=== PATIENT | female | born 1990 | race Caucasian/White ===

== ENCOUNTER 2018-11-16 08:38 | Outpatient (CLI) | payer OTHER ==
[2018-11-16 12:05] LABS: HGB - HEMOGLOBIN 13.5 g/dL (12.0-16.0); MEAN CORPUSCULAR HEMOGLOBIN 30.5 pg (27.0-31.0); MEAN CORPUSCULAR HGB CONC 32.1 g/dL (32.0-36.0); MEAN CORPUSCULAR VOLUME 95.2 fL (81.0-99.0); MEAN PLATELET VOLUME 10.3 fL (7.9-10.8); RED BLOOD COUNT 4.42 10^6/uL (4.20-5.40); RED CELL DISTRIBUTION WIDTH 14.1 % (12.0-15.0); WHITE BLOOD COUNT 8.7 x10^3/uL (4.8-10.8)
[2018-11-16 12:37] LABS: T4 (THYROXINE) 9.74 ug/dL (6.09-12.23)
[2018-11-16 12:39] LABS: THYROID STIMULATING HORMONE 0.9 uIU/mL (0.34-5.60)
[2018-11-16 12:46] LABS: TOTAL T3 2.22 ng/mL (0.87-1.78)
== END 2018-11-16 23:59 | disposition home or self-care (01) ==
LOC: LAB.WCP 08:38
PROVIDERS: ATTEND Obstetrics & Gynecology
DX: Z34.90 Encounter for supervision of normal pregnancy, unspecified, unspecified trimester (principal)
CPT/HCPCS: 36415; 82950; 84436; 84443; 84480; 85027; 86850; 86870

== ENCOUNTER 2018-11-22 07:53 | Outpatient (CLI) | payer OTHER | END 2018-11-22 07:54 | disposition home or self-care (01) | LOC: LAB 07:53 | PROVIDERS: ATTEND Obstetrics & Gynecology | DX: O99.810 Abnormal glucose complicating pregnancy (principal) | CPT/HCPCS: 36415; 82951; 82952 ==

== ENCOUNTER 2018-11-24 13:08 | Outpatient (CLI) | payer OTHER ==
[~2018-11-24 13:08] MED LIST: ALBUTEROL NEB 2.5 MG/3 ML INH SCH
== END 2018-11-24 13:09 | disposition home or self-care (01) ==
LOC: RT 13:08
PROVIDERS: ATTEND Obstetrics & Gynecology
DX: J45.998 Other asthma (principal)
CPT/HCPCS: 94060; 94664

== ENCOUNTER 2019-01-08 08:00 | Outpatient (CLI) | payer OTHER ==
[2019-01-08 21:57] LABS: TRICHOMONAS VAGINALIS DNA NEGATIVE (NEGATIVE)
== END 2019-01-08 23:59 | disposition home or self-care (01) ==
LOC: LAB.R 08:00
PROVIDERS: ATTEND Nurse Practitioner Obstetrics & Gynecology
DX: Z36.85 Encounter for antenatal screening for Streptococcus B (principal); Z36.88 Encounter for antenatal screening for fetal macrosomia
CPT/HCPCS: 87491; 87591; 87661; 87797

== ENCOUNTER 2019-01-18 08:21 | Outpatient (CLI) | payer OTHER ==
[2019-01-18 12:53] LABS: T4 (THYROXINE) 8.43 ug/dL (6.09-12.23)
[2019-01-18 12:57] LABS: THYROID STIMULATING HORMONE 0.96 uIU/mL (0.34-5.60)
== END 2019-01-18 23:59 | disposition home or self-care (01) ==
LOC: LAB.N 08:21
PROVIDERS: ATTEND Nurse Practitioner Obstetrics & Gynecology
DX: E03.8 Other specified hypothyroidism (principal)
CPT/HCPCS: 36415; 84436; 84443

== ENCOUNTER 2019-01-29 15:24 | Outpatient (CLI) | payer OTHER ==
--- NOTE | 2019-01-30 13:38 | Ultrasound Report ---
Reason: SUPERVISION OF NORMAL Procedure Date: 01/29/2019 Accession Number: [id number] / [id number] Procedure: US - OB F/U or Repeat CPT Code: FULL RESULT: EXAM: FOLLOW-UP OBSTETRICAL ULTRASOUND EXAM DATE: 01/29/2019 04:57 PM. CLINICAL HISTORY: Supervision of normal . COMPARISON: No comparison images are available. A report from an outside ultrasound evaluation is provided. TECHNIQUE: Real-time sonographic evaluation of the fetus performed by the python architect. Multiple civil rights representative static images were saved for review. DATING: Established EGA 38 weeks 5 days with BERYL 02/07/2019 based on working due date. EGA 40 weeks 1 day with BERYL 01/28/2019 based on the current ultrasound. GENERAL EVALUATION [place] . Cardiac activity: 137 bpm. movement: Visualized. Presentation: Cephalic. Placenta: Anterior position. Amniotic fluid: Normal. HEATHER 19 cm. MVP 6.1 cm. BIOMETRY Bi-Parietal Diameter (BPD): 9.6 cm, 39 weeks 4 days Head Circumference (HC): 35.3 cm, 41 weeks 2 days Abdominal Circumference (AC): 36.8 cm, 40 weeks 5 days Femur Length (FL): 7.6 cm, 39 weeks 0 days Estimated Weight: 4049 grams, 94th percentile for 38 weeks 5 days. IMPRESSION: 1. [place] live intrauterine with gestational age 38 weeks 5 days based on working due date. 2. Estimated weight is consistent with the report of previous ultrasound and remains above the 90th percentile for the working due date. 3. Consistent interval growth compared to report of previous ultrasound exam. RADIA
== END 2019-01-29 15:25 | disposition home or self-care (01) ==
LOC: DI 15:24
PROVIDERS: ATTEND Nurse Practitioner Obstetrics & Gynecology
DX: Z34.93 Encounter for supervision of normal pregnancy, unspecified, third trimester (principal)
CPT/HCPCS: 76816

== ENCOUNTER 2019-01-31 16:45 | Inpatient (IN) | payer OTHER ==
[2019-01-31] MEDS ORDERED: SODIUM CHLORIDE FLUSH 0.9% 10 ML SYRINGE ONE (17:50)
[2019-01-31 18:52] LABS: BASOPHILS % (AUTO) 0.3 %; EOSINOPHILS # (AUTO) 0.1 10^3/uL (0.0-0.7); EOSINOPHILS % (AUTO) 1.3 %; HGB - HEMOGLOBIN 14.4 g/dL (12.0-16.0); LYMPHOCYTES % (AUTO) 18.2 %; MEAN CORPUSCULAR HEMOGLOBIN 31.6 pg (27.0-31.0); MEAN CORPUSCULAR VOLUME 92.8 fL (81.0-99.0); MEAN PLATELET VOLUME 10.9 fL (7.9-10.8); MONOCYTES # (AUTO) 0.8 10^3/uL (0.0-1.0); MONOCYTES % (AUTO) 7.5 %; NEUTROPHILS # (AUTO) 7.8 10^3/uL (1.5-6.6); NEUTROPHILS % (AUTO) 71.4 %; PLT - PLATELET COUNT 179 10^3/uL (130-450); RED BLOOD COUNT 4.56 10^6/uL (4.20-5.40); RED CELL DISTRIBUTION WIDTH 13.6 % (12.0-15.0); WHITE BLOOD COUNT 10.9 x10^3/uL (4.8-10.8)
[2019-01-31] MEDS ORDERED: ONDANSETRON 4 MG/2 ML VIAL IVP PRN (18:59)
[2019-01-31] MEDS ORDERED: ACETAMINOPHEN 325 MG TABLET PO PRN (18:59)
[2019-01-31] MEDS ORDERED: LABETALOL 20 MG/4 ML SYRINGE IVP PRN (18:59)
[2019-01-31] MEDS ORDERED: SODIUM CHLORIDE FLUSH 0.9% 10 ML SYRINGE IVP PRN (18:59)
[2019-01-31] MEDS ORDERED: CARBOPROST TROMETHAMINE 250 MCG/ML AMP IM PRN (18:59)
[2019-01-31] MEDS ORDERED: ONDANSETRON ODT 4 MG TABLET TL PRN (18:59)
[2019-01-31] MEDS ORDERED: fentaNYL 100 MCG/2 ML VIAL IVP PRN (18:59)
[2019-01-31] MEDS ORDERED: TERBUTALINE 1 MG/ML VIAL SUBQ PRN (18:59)
[2019-01-31] MEDS ORDERED: miSOPROStol 200 MCG TABLET PR ONE (18:59)
[2019-01-31] MEDS ORDERED: METOCLOPRAMIDE 10 MG TABLET PO PRN (18:59)
[2019-01-31] MEDS ORDERED: METOCLOPRAMIDE 10 MG/2 ML VIAL IVP PRN (18:59)
[2019-01-31] MEDS ORDERED: OXYTOCIN/DEXTROSE 5 % 30 UNIT/500 ML BAG IV PRN (18:59)
[2019-01-31] MEDS ORDERED: LACTATED RINGERS 1,000 ML IV SCH (19:00)
[2019-01-31] MEDS ORDERED: OXYTOCIN/DEXTROSE 5 % 30 UNIT/500 ML BAG IV SCH (19:00)
[2019-01-31 19:05] LABS: URIC ACID 3.3 mg/dL (2.6-7.2)
[2019-01-31 19:39] LABS: CREATININE,URINE 46.9 mg/dL; PROTEIN/CREATININE RATIO,URINE 0.2 (<=0.2)
[2019-01-31] MEDS ORDERED: miSOPROStol 100 MCG TABLET BC SCH (21:00)
[2019-01-31] MEDS ORDERED: CETIRIZINE 10 MG TABLET PO PRN (22:07)
[2019-02-01] MEDS ORDERED: SODIUM CHLORIDE FLUSH 0.9% 10 ML SYRINGE IVP SCH (01:00)
--- NOTE | 2019-02-01 03:52 | HISTORY & PHYSICAL EXAMINATION ---
Admit History - Visit Reason Visit Reason: Other (Induciton of labor) - : 2 Parity: 1 Care: positive: [facility] Risk/History: positive: Other (Concern for macrosomia. Gestational hypertension.) Smoking Status: Former smoker - Mother's Labs Mother's Blood Type: positive: O Mother's RH: positive: Negative GBS: positive: Group B Step Negative Rubella Status: positive: Immune - Other Maternal History Other Maternal History: Patient is a 28-year-old G2, P1 at 39 and 0 weeks estimated gestational age with an BERYL of 02/07/2019 based on IVF dating. Patient was seen in clinic today and reported persistent headaches. Blood pressure was checked and was in the 140s over 90s. She had 1+ urine protein. is also been complicated by concern for possible macrosomia. She underwent a growth ultrasound at 38 weeks and 5 days. was estimated to weigh 4039g. SVE in clinic was closed long and high. Bedside ultrasound showed infant to be in vertex presentation. Blood type is O+. Rubella immune. GBS negative. Received RhoGam on 11/13/2018. Admitted for induction of labor. Meds/Allgy - Allergies Allergies/Adverse Reactions: Allergies Allergy/AdvReac Type Severity Reaction Status Date / Time enviormental Allergy Respiratory Uncoded 01/31/19 19:51 hay fever Allergy Respiratory Uncoded 01/31/19 19:51 Review of Systems - Other Findings Other Findings: As per HPI otherwise remaining systems are negative. Physical - Abdominal Exam Uterine Resting Tone: positive: Soft - Monitoring Heart Rate Baseline: 135 Moderate variability 15 x 15 accelerations no decelerations Strip Review: positive: Category I - Presentation Presentation: positive: Vertex - Vaginal Exam Membranes: positive: Membranes intact Dilation (in cm): closed Effacement (%): long Station: positive: -3 Cervical Position: positive: Posterior - Speculum Exam Speculum Exam Performed: positive: No Plan for Labor - Plan For Labor Plan for Labor: Patient is a 28-year-old G2, P0 with BERYL of 02/07/2019 admitted for induction of labor for gestational hypertension and suspected macrosomia. IOL: -Unfavorable cervical exam. -Cervical ripening with misoprostol 50 mcg BC every 4 hours for up to 6 doses -Discussed possibility of placement of Boss balloon -Pitocin once cervix is favorable -Written informed consent obtained FWB: -Suspected macrosomia. Estimated weight at 38 weeks 5 days was 4039 g. Does not meet criteria to offer primary for suspected macrosomia as estimated weight is less than 5000 g. Would not offer operative delivery in the setting of systolic labor course. -Category 1 tracing -Vertex presentation -GBS negative PAIN: -Fentanyl 50 mcg IV q. 20 minutes as needed pain for max dose of 200 mcg in total. Not to be given after 7 cm dilation -Nitrous oxide per patient request -Epidural as patient desire GHTN: -Mild range blood pressures at admission -PIH labs within normal limits -Mild headaches without vision change. -Continue to monitor signs and symptoms. IV labetalol for severe range blood pressures. -We will hold magnesium drip unlesssevere criteria for preeclampsia are met. -Continue to monitor at present. Anticipate Inpatient care
[2019-02-01 04:51] VITALS: BP 101/64
[2019-02-01] MEDS ORDERED: LEVOTHYROXINE 75 MCG TABLET PO SCH (07:00)
[2019-02-01] MEDS ORDERED: CETIRIZINE 10 MG TABLET PO SCH (09:00)
--- NOTE | 2019-02-01 09:35 | PROVIDER PROGRESS NOTE ---
Subjective - Prog Note Date Prog Note Date: 02/01/19 Prog Note Time: 09:33 - Subjective Subjective: The patient is doing actually quite well this morning. The pain that was interpreted as a headache is actually facial pain. The patient states she has allergies which causes this pain. She does not have any occipital headaches.She is actually without any complaint today. Objective - Vital Signs/Intake & Output Vital Signs: Vital Signs x48h Temp Pulse Resp BP Pulse Ox 02/01/19 04:30 36.7 C 102 H 18 101/64 98 - Lab Results Fish Bones: 01/31/19 18:46 Other Labs: Lab Results x24hrs 01/31/19 01/31/19 01/31/19 Range/Units 19:15 18:46 18:46 WBC 10.9 H (4.8-10.8) x10^3/uL RBC 4.56 (4.20-5.40) 10^6/uL Hgb 14.4 (12.0-16.0) g/dL Hct 42.3 (37.0-47.0) % MCV 92.8 (81.0-99.0) fL MCH 31.6 H (27.0-31.0) pg MCHC 34.0 (32.0-36.0) g/dL RDW 13.6 (12.0-15.0) % Plt Count 179 (130-450) 10^3/uL MPV 10.9 H (7.9-10.8) fL Neut # (Auto) 7.8 H (1.5-6.6) 10^3/uL Lymph # (Auto) 2.0 (1.5-3.5) 10^3/uL Pitkin # (Auto) 0.8 (0.0-1.0) 10^3/uL Eos # (Auto) 0.1 (0.0-0.7) 10^3/uL Baso # (Auto) 0.0 (0.0-0.1) 10^3/uL Absolute Nucleated RBC 0.00 x10^3/uL Nucleated RBC % 0.0 /100WBC Uric Acid 3.3 (2.6-7.2) mg/dL AST 17 (10-42) IU/L Lactate Dehydrogenase (91-225) IU/L Urine Creatinine 46.9 mg/dL Ur Total Protein Timed 10 mg/dL Protein/Creatinin Ratio 0.2 (<=0.2) 01/31/19 Range/Units 18:46 WBC (4.8-10.8) x10^3/uL RBC (4.20-5.40) 10^6/uL Hgb (12.0-16.0) g/dL Hct (37.0-47.0) % MCV (81.0-99.0) fL MCH (27.0-31.0) pg MCHC (32.0-36.0) g/dL RDW (12.0-15.0) % Plt Count (130-450) 10^3/uL MPV (7.9-10.8) fL Neut # (Auto) (1.5-6.6) 10^3/uL Lymph # (Auto) (1.5-3.5) 10^3/uL Pitkin # (Auto) (0.0-1.0) 10^3/uL Eos # (Auto) (0.0-0.7) 10^3/uL Baso # (Auto) (0.0-0.1) 10^3/uL Absolute Nucleated RBC x10^3/uL Nucleated RBC % /100WBC Uric Acid (2.6-7.2) mg/dL AST (10-42) IU/L Lactate Dehydrogenase 143 (91-225) IU/L Urine Creatinine mg/dL Ur Total Protein Timed mg/dL Protein/Creatinin Ratio (<=0.2) - Other Results/Comments Other Results/Comments: Laboratory Tests 01/31/19 01/31/19 01/31/19 18:46 18:46 18:46 WBC 10.9 H RBC 4.56 Hgb 14.4 Hct 42.3 MCV 92.8 MCH 31.6 H MCHC 34.0 RDW 13.6 Plt Count 179 MPV 10.9 H Neut # (Auto) 7.8 H Lymph # (Auto) 2.0 Pitkin # (Auto) 0.8 Eos # (Auto) 0.1 Baso # (Auto) 0.0 Absolute Nucleated RBC 0.00 Nucleated RBC % 0.0 Uric Acid 3.3 AST 17 Lactate Dehydrogenase 143 Urine Creatinine Ur Total Protein Timed Protein/Creatinin Ratio 01/31/19 19:15 WBC RBC Hgb Hct MCV MCH MCHC RDW Plt Count MPV Neut # (Auto) Lymph # (Auto) Pitkin # (Auto) Eos # (Auto) Baso # (Auto) Absolute Nucleated RBC Nucleated RBC % Uric Acid AST Lactate Dehydrogenase Urine Creatinine 46.9 Ur Total Protein Timed 10 Protein/Creatinin Ratio 0.2 Pelvic: The cervix is closed. It is 50%, posterior baby is -3.The baby is reactive with good accelerations. Only a few contractions are noted on the EFM. Assessment/Plan - Problem List (1) Impression: Intrauterine at 39 weeks 1 day gestation Plan: Since the patient's blood pressures have all been within normal limits and her lab work is all negative and she is quite remote from delivery at this point in time we are going to let her go home. She had been given 1 dose of misoprostol. She was told to return to OB if signs of labor ensue. Also if she begins having any headaches not relieved with Tylenol, abrupt changes in her vision or right upper quadrant pain she should return to OB immediately.As long as she does well we will set her up for an elective induction on Monday, February 04.
--- NOTE | 2019-02-01 13:43 | DISCHARGE SUMMARY ---
Physician: Bunny Donnelly DO DATE OF ADMISSION: 01/31/2019 DATE OF DISCHARGE: 02/01/2019 ADMITTING DIAGNOSES 1. Intrauterine at 39 weeks' gestation. 2. Question of gestational hypertension. 3. Possible macrosomia. DISCHARGE DIAGNOSES 1. Intrauterine at 39 weeks, 1 day gestation. 2. Normotensive. 3. Possible macrosomia. LABORATORIES: All preeclamptic labs were within normal limits. P/C ratio was at 2. HOSPITAL COURSE: Patient had come for an office visit on 01/31/2019. She was complaining of a heada magen at that time. Her blood pressures were in the 140s and she was sent to labor and delivery for in duction since she was 39 weeks' gestation. Her cervix was actually closed and thick at that time. S he was given 1 dose of misoprostol and slept all night. During that time, all of her blood pressures were within normal limits. All of her preeclamptic labs were normal. In the morning, her cervix wa s rechecked and found to be completely unchanged. It was posterior, closed, possibly 50% effaced. T he fetus was in -3. Patient had also related that the headache she complained of was actually facial pain. Patient states she has seasonal allergies and these bother her all year around. She has had this type of facial pain before. She does not have any occipital headaches or other type of headache s. It was felt, therefore that patient could be discharged to home. Patient did wish to do this at this time. DISCHARGE INSTRUCTIONS Patient discharged home with written and verbal instructions including such things as 1. As long as she does well, she will return on 02/04/2019 for elective induction of labor. 2. She may use Benadryl and Sudafed as she needs to for the facial pain. 3. She was told to come back to OB immediately if any signs of labor ensue or if she has headaches, not relieved with Tylenol, visual changes, or right upper quadrant pain. TD: 02/01/2019 10:13
[2019-02-01] MEDS ORDERED: MONTELUKAST 10 MG TABLET PO SCH (21:00)
== END 2019-02-01 10:30 | disposition home or self-care (01) | DRG 833 ==
LOC: WFO 16:45 → FBP 16:47 → WFO 18:58 → FBP 18:59
PROVIDERS: ADMIT Obstetrics & Gynecology; ATTEND Obstetrics & Gynecology
DX: O36.63X0 Maternal care for excessive fetal growth, third trimester, not applicable or unspecified (principal); Z3A.39 39 weeks gestation of pregnancy; O61.0 Failed medical induction of labor; O99.513 Diseases of the respiratory system complicating pregnancy, third trimester; J30.2 Other seasonal allergic rhinitis; Z87.891 Personal history of nicotine dependence
CPT/HCPCS: 36415; 82570; 83615; 84156; 84450; 84550; 85025; A9270

== ENCOUNTER 2019-02-12 11:21 | Outpatient (CLI) | payer OTHER ==
[2019-02-12 11:46] LABS: BASOPHILS % (AUTO) 0.4 %; EOSINOPHILS # (AUTO) 0.2 10^3/uL (0.0-0.7); EOSINOPHILS % (AUTO) 1.5 %; HGB - HEMOGLOBIN 14.9 g/dL (12.0-16.0); LYMPHOCYTES # (AUTO) 1.9 10^3/uL (1.5-3.5); LYMPHOCYTES % (AUTO) 19.2 %; MEAN CORPUSCULAR HEMOGLOBIN 31.4 pg (27.0-31.0); MEAN CORPUSCULAR HGB CONC 33.1 g/dL (32.0-36.0); MEAN CORPUSCULAR VOLUME 94.7 fL (81.0-99.0); MEAN PLATELET VOLUME 10.8 fL (7.9-10.8); MONOCYTES % (AUTO) 10.2 %; NEUTROPHILS # (AUTO) 6.6 10^3/uL (1.5-6.6); NEUTROPHILS % (AUTO) 67.5 %; PLT - PLATELET COUNT 167 10^3/uL (130-450); RED BLOOD COUNT 4.75 10^6/uL (4.20-5.40); RED CELL DISTRIBUTION WIDTH 13.6 % (12.0-15.0); WHITE BLOOD COUNT 9.8 x10^3/uL (4.8-10.8)
[2019-02-12 11:57] LABS: CALCIUM 8.5 mg/dL (8.5-10.3); CREATININE 0.5 mg/dL (0.4-1.0)
== END 2019-02-12 11:22 | disposition home or self-care (01) ==
LOC: LAB 11:21
PROVIDERS: ATTEND Obstetrics & Gynecology
DX: Z01.812 Encounter for preprocedural laboratory examination (principal); O36.60X0 Maternal care for excessive fetal growth, unspecified trimester, not applicable or unspecified
CPT/HCPCS: 36415; 80048; 85025

== ENCOUNTER 2019-02-13 07:15 | Inpatient (IN) | payer OTHER ==
[~2019-02-13 07:15] MED LIST changes: -ALBUTEROL NEB 2.5 MG/3 ML INH SCH; +ceFAZolin 2 GM in SODIUM CHLORIDE 0.9% 100ML 100 ML IV ONE
[2019-02-13] MEDS: LACTATED RINGERS 1,000 ML IV SCH ×3 (08:10→17:44)
--- NOTE | 2019-02-13 08:23 | ANESTHESIA ---
Pre-Anesthesia VS, & Labs - Diagnosis macrosomia - Procedure section Vital Signs: Temp Pulse Resp BP Pulse Ox 36.7 C 92 18 126/69 99 02/13/19 06:46 02/13/19 06:46 02/13/19 06:46 02/13/19 06:46 02/13/19 06:46 Height 5 ft 3 in - NPO >8 hours - Is Patient ?: Yes - Lab Results Lab results reviewed: Yes Home Medications and Allergies Active Medications Lactated Ringer's (Lr) 1,000 mls @ 125 mls/hr IV .Q8H BESSY singulair, qvar, zertec Allergies/Adverse Reactions: Allergies Allergy/AdvReac Type Severity Reaction Status Date / Time enviormental Allergy Respiratory Uncoded 01/31/19 19:51 hay fever Allergy Respiratory Uncoded 01/31/19 19:51 Anes History & Medical History - Anesthetic History Anesthesia Complications: reports: No previous complications - Medical History Cardiovascular: reports: None Pulmonary: reports: Asthma Gastrointestinal: reports: None Musculoskeletal: reports: Other (some right carpal tunnel syndrome) Endocrine/Autoimmune: reports: None Smoking Status: Former smoker Exam General: Alert Dental: WNL Mouth Opening: Greater than 4 Fingerbreadths Mallampati classification: II Thyromental Distance: greater than 6 cm Respiratory: Lungs clear Cardiovascular: Regular rate, Normal S1, Normal S2 Mental/Cognitive Status: Alert/Oriented X3 Plan Anesthesia Type: Spinal Consent for Procedure(s) Verified and Reviewed: Yes Code Status: Attempt Resuscitation ASA classification: 2-Mild systemic disease Is this case an emergency?: No
--- NOTE | 2019-02-13 10:16 | PREOP HISTORY & PHYSICAL ---
DATE OF SERVICE: 02/13/2019 Physician: Carmine Gracia MD IDENTIFICATION: The patient is a 28-year-old G2, P0, AB1, female whose is via IVF. She is 41 weeks EGA. CHIEF COMPLAINT: Macrosomic infant. HISTORY OF PRESENT ILLNESS: The patient had an ultrasound done roughly 2 weeks prior, which showed a n estimated weight of 4049 grams. The concerns are those of a macrosomic . She has not had any diabetes during this . She has a history of a mother who delivered her, at which ti me she weighed 9 pounds and she suffered a shoulder dystocia. Her mother also had an episioproctotom y done for relief for this, but had difficulties with uterine prolapse, cystocele, and eventually had a hysterectomy at 24 years of age for prolapse, cystocele, as well as stress incontinence. At this particular time, we have discussed the issues of possible shoulder dystocia. We have also reviewed t he risks and benefits of section. At this point, she is opting to have a . PAST MEDICAL HISTORY: Positive for asthma. PAST SURGICAL HISTORY: NONE. CURRENT MEDICATIONS: vitamins, albuterol. Serevent, as well as Zyrtec. HABITS: The patient denies use of alcohol, tobacco, street or addictive drugs. SOCIAL HISTORY: The patient is to an [employer]. FAMILY HISTORY: Shoulder dystocia as previously described. PHYSICAL EXAMINATION: GENERAL: The patient is a well-developed, well-nourished female. She is in no acute distress at thi s time. HEENT: Pupils are equal and round. Extraocular muscles are intact. Mouth is clear. Thyroid is not palpably enlarged. HEART: Regular rate and rhythm without murmurs. LUNGS: Lung amezcua are clear without rales or wheezes. BACK: No spinal or CVA tenderness noted. ABDOMEN: A gravid uterus, which is roughly 41 cm at this time. palpates in the vertex presen tation. IMPRESSION: 1. A 28-year-old G2, P0, AB1. 2. Female IVF at 41 weeks. 3. Suspected macrosomia. 4. Family history of mother with difficulty with pelvic relaxation following a difficult vaginal del sp. PLAN: We will perform a primary low transverse section. Risks and benefits have been expla ined to the patient including those, but not limited to bleeding, infection, injury to pelvic organs, which include the uterus, tubes, ovaries, bowel, bladder, and ureters. She is aware of the potentia l for DVT with PE as well as postoperative adhesions, which could cause pain, bowel obstruction, as w ell as infertility. The patient is also aware that an ultrasound is an estimated weight and th e infant may be more or less than her weight on ultrasound. TD: 02/13/2019 09:59
[2019-02-13] MEDS ORDERED: LACTATED RINGERS 1,000 ML IV ONE (10:42)
[2019-02-13] MEDS: KETOROLAC 30 MG/ML VIAL IVP SCH ×3 (11:30→21:25)
[2019-02-13] MEDS ORDERED: oxyCODONE 5 MG TABLET PO PRN (11:44)
[2019-02-13] MEDS ORDERED: ONDANSETRON 4 MG/2 ML VIAL IVP PRN (11:44)
[2019-02-13] MEDS ORDERED: OXYTOCIN/DEXTROSE 5 % 30 UNIT/500 ML BAG IV PRN (11:44)
[2019-02-13] MEDS ORDERED: METHYLERGONOVINE 0.2 MG/ML AMP IM PRN (11:44)
[2019-02-13] MEDS ORDERED: diphenhydrAMINE 25 MG CAPSULE PO PRN (11:44)
[2019-02-13] MEDS ORDERED: SODIUM CHLORIDE FLUSH 0.9% 10 ML SYRINGE IVP PRN (11:44)
--- NOTE | 2019-02-13 11:52 | OPERATIVE REPORT ---
Operative Report - General Admit Date: 02/13/19 Procedure Date: 02/13/19 Planned Procedure: PLTC/S Pre-Op Diagnosis: 41 weeks Suspected macrosomia Procedure Performed: PLTC/S - Procedure Note Primary Surgeon: Carmine Gracia MD Secondary Surgeon: Aura Johnson MD Anesthesia Provider: Raffaele Forrester CRNA Anesthesia Technique: Spinal Pathology: None IV Fluids (mL): 600 Estimated Blood Loss (mL): 400 Urine Output (mL): 200 Indications: Suspected Macrosomia
--- NOTE | 2019-02-13 13:08 | OPERATIVE REPORT ---
DATE OF SERVICE: 02/13/2019 Physician: Carmine Gracia MD PREOPERATIVE DIAGNOSES 1. Forty-one weeks gestation. 2. Suspected macrosomia. POSTOPERATIVE DIAGNOSES 1. Forty-one weeks gestation. 2. Suspected macrosomia. PROCEDURE PERFORMED: Primary low transverse section. SURGEON: Carmine Gracia MD. PIG FARMER: Dr. Mimi Johnson. ANESTHESIA PROVIDER: Zeinab Forrester CRNA. ANESTHETIC: Spinal. ESTIMATED BLOOD LOSS: 600 mL IV FLUIDS: 400 mL URINE OUTPUT: 200 mL PRESENTING HISTORY: The patient is a 28-year-old G2, P0, IVF female who is 41 weeks by dating criteria. She had had an ultrasound done 2 weeks prior, which showed a 4043 gram infant. She failed to go into labor. She has a history of a mother who suffered a shoulder dystocia as well as a fourth-degree laceration as well as pelvic floor prolapse secondary to delivery of the patient. For this reason, the patient requested a primary low transverse section. DESCRIPTION OF PROCEDURE: Following adequate spinal anesthesia, the patient was placed in a supine position. At this point, a Boss catheter was placed under sterile conditions. She was then prepped and draped in the usual fashion. At this point, a timeout was performed in which the patient's concerns as well as the indications were reviewed. A Pfannenstiel incision was carried down through the subcutaneous tissue to the fascia. The fascia was incised transversely, then using both blunt and sharp dissection was freed from the rectus abdominis and pyramidalis. The rectus was then split along the midline. The peritoneum was entered high. Care was taken to avoid any injury to bowel or bladder at this time. A bladder retractor was placed and a bladder flap was developed. At this point, a low transverse uterine incision was accomplished using a #10 blade, bandage scissors and finger spread technique. The head of the was noted to be in the right occiput transverse. The was delivered. Amniotic fluid was clear. The oral and nasopharynx were both suctioned. Following 30 seconds after delivery, the cord was clamped. At this point, it was divided, and the was handed to the nursery team that was standing by. Cord blood samples were obtained, following which the uterus was exteriorized, and the placenta was delivered. The uterus was wrapped in a moist lap and then cleansed the internal portion with a dry lap. The cervix was then dilated with ring forceps. Following this, the incision was closed using a running locking suture of 0 Vicryl with an imbricating layer of 0 Vicryl. The incision was inspected and there was evidence of good hemostasis. The cul-de-sac was suctioned at which time the estimated blood loss was made. Then, the cul-de-sac was irrigated. The uterus was delivered back in the abdominal cavity and the gutters were likewise irrigated. No further bleeding was detected at this time. The wound was inspected and noted to be dry. The peritoneum was closed using 2-0 Vicryl and the rectus reapproximated with 0 Vicryl with [id number]. The subcutaneous tissue was closed utilizing 2-0 Vicryl and the incision itself was closed utilizing 4-0 Monocryl. The wound VAC was placed with evidence of good seal. The uterus was expressed for further clots. The patient tolerated the procedure well and was taken to recovery in stable condition. Sponge and needle counts were correct. TD: 02/13/2019 12:00 MTDD
[2019-02-13] MEDS: ACETAMINOPHEN 500 MG TABLET PO SCH (17:36)
[2019-02-13] MEDS: SODIUM CHLORIDE FLUSH 0.9% 10 ML SYRINGE IVP SCH (20:36)
[2019-02-13] MEDS: SIMETHICONE CHEW 80 MG TABLET PO SCH (20:36)
[2019-02-13] MEDS: DOCUSATE SODIUM 100 MG CAPSULE PO SCH (20:36)
[2019-02-13] MEDS: MONTELUKAST 10 MG TABLET PO SCH (20:36)
[2019-02-14] MEDS: ACETAMINOPHEN 500 MG TABLET PO SCH ×3 (01:23→17:51)
[2019-02-14] MEDS: KETOROLAC 30 MG/ML VIAL IVP SCH (01:36)
[2019-02-14 06:43] LABS: BASOPHILS % (AUTO) 0.3 %; EOSINOPHILS # (AUTO) 0.2 10^3/uL (0.0-0.7); EOSINOPHILS % (AUTO) 1.9 %; HGB - HEMOGLOBIN 12.2 g/dL (12.0-16.0); LYMPHOCYTES # (AUTO) 1.7 10^3/uL (1.5-3.5); LYMPHOCYTES % (AUTO) 17.7 %; MEAN CORPUSCULAR HEMOGLOBIN 30.7 pg (27.0-31.0); MEAN CORPUSCULAR HGB CONC 31.9 g/dL (32.0-36.0); MEAN PLATELET VOLUME 10.9 fL (7.9-10.8); MONOCYTES # (AUTO) 0.8 10^3/uL (0.0-1.0); MONOCYTES % (AUTO) 8.4 %; NEUTROPHILS # (AUTO) 6.6 10^3/uL (1.5-6.6); NEUTROPHILS % (AUTO) 70.5 %; PLT - PLATELET COUNT 140 10^3/uL (130-450); RED BLOOD COUNT 3.98 10^6/uL (4.20-5.40); RED CELL DISTRIBUTION WIDTH 13.8 % (12.0-15.0); WHITE BLOOD COUNT 9.4 x10^3/uL (4.8-10.8)
[2019-02-14] MEDS: LEVOTHYROXINE 75 MCG TABLET PO SCH (07:08)
[2019-02-14] MEDS: LACTATED RINGERS 1,000 ML IV SCH ×2 (07:43→09:25)
[2019-02-14] MEDS: DOCUSATE SODIUM 100 MG CAPSULE PO SCH ×2 (08:22→20:48)
[2019-02-14] MEDS: SIMETHICONE CHEW 80 MG TABLET PO SCH ×4 (08:22→20:48)
--- NOTE | 2019-02-14 08:27 | PROVIDER PROGRESS NOTE ---
Subjective - General Admit Date: 02/13/19 Procedure Date: 02/13/19 Post Op Days: 1 Procedure Performed: PLTC/S - Review of Systems Wound/Incisions: positive: Dressing dry and intact General: positive: No symptoms (Pain 1/10 with movement.) HEENT: positive: No symptoms Pulmonary: positive: No symptoms Gastrointestinal: positive: No symptoms. negative: Flatus Genitourinary: positive: No symptoms (voiding zamudio out) Objective - Patient Data Reviewed Vital Signs: Yes Vital Signs: Vital Signs x48h Temp Pulse Resp BP Pulse Ox 02/14/19 05:17 36.9 C 101 H 16 112/71 97 02/14/19 01:22 37.0 C 111 H 16 103/64 97 Weight: Weight 02/12/19 02/13/19 02/14/19 23:59 23:59 23:59 Weight (kg) 92.079 kg Intake & Output: Intake and Output Totals x24h 02/12/19 02/13/19 02/14/19 23:59 23:59 23:59 Intake Total 968.75 Output Total 520 1050 Balance 448.75 -1050 - Lab Results Lab Results: 02/14/19 06:15 Other Lab Results: Lab Results x24hrs 02/14/19 02/13/19 02/13/19 Range/Units 06:15 09:59 08:10 WBC 9.4 (4.8-10.8) x10^3/uL RBC 3.98 L (4.20-5.40) 10^6/uL Hgb 12.2 (12.0-16.0) g/dL Hct 38.2 (37.0-47.0) % MCV 96.0 (81.0-99.0) fL MCH 30.7 (27.0-31.0) pg MCHC 31.9 L (32.0-36.0) g/dL RDW 13.8 (12.0-15.0) % Plt Count 140 (130-450) 10^3/uL MPV 10.9 H (7.9-10.8) fL Neut # (Auto) 6.6 (1.5-6.6) 10^3/uL Lymph # (Auto) 1.7 (1.5-3.5) 10^3/uL Motley # (Auto) 0.8 (0.0-1.0) 10^3/uL Eos # (Auto) 0.2 (0.0-0.7) 10^3/uL Baso # (Auto) 0.0 (0.0-0.1) 10^3/uL Absolute Nucleated RBC 0.00 x10^3/uL Nucleated RBC % 0.0 /100WBC Blood Type O NEGATIVE Blood Type Recheck O NEGATIVE Antibody Screen NEGATIVE - Current Medications Current Medications: Current Medications Generic Name Dose Route Start Last Admin Trade Name Freq PRN Reason Stop Dose Admin Acetaminophen 1,000 mg 02/13/19 12:00 02/14/19 01:23 Tylenol PO 1,000 mg Q8H BESSY Administration Docusate Sodium 100 mg 02/13/19 21:00 02/13/19 20:36 Colace 100mg Capsule PO 100 mg BID BESSY Administration Lactated Ringer's 1,000 mls @ 100 mls/hr 02/13/19 12:00 02/14/19 07:43 Lr IV Not Given .Q10H BESSY OXYTOCIN/DEXTROSE 5 % 30 unit in 500 mls @ 999 mls/hr 02/13/19 11:44 02/13/19 14:23 Pitocin/Dextrose 5% IV 999 milliunit/min PRN PRN 999 mls/hr POST- HEMORR PREVENTION Administration Protocol 999 MILLIUNIT/MIN Levothyroxine Sodium 75 mcg 02/14/19 07:00 02/14/19 07:08 Synthroid PO 75 mcg QDAC BESSY Administration Montelukast Sodium 10 mg 02/13/19 21:00 02/13/19 20:36 Singulair PO 10 mg QPM BESSY Administration Simethicone 80 mg 02/13/19 14:00 02/13/19 20:36 Mylicon PO 80 mg TID BESSY Administration Sodium Chloride 10 ml 02/13/19 17:00 02/13/19 20:36 Normal Saline Flush 0.9% IVP 10 ml 0100,0900,1700 BESSY Administration - Physical Exam Wound/Incisions: positive: Dressing dry and intact General Appearance: positive: No acute distress, Alert Respiratory: positive: Chest non-tender, No respiratory distress, Breath sounds nml Cardiovascular: positive: Regular rate & rhythm, No murmur, No gallop Abdomen: positive: Non-tender, Nml bowel sounds, Mass (At U) Extremities: negative: Calf tenderness, Yoli's sign/cords Neurologic/Psychiatric: positive: Oriented x3 Impression/Plan - Problem List Problem List: POD #1 progressing well. change to Motrin. baby Rh positive. Rhogam.
[2019-02-14] MEDS ORDERED: CETIRIZINE 10 MG TABLET PO SCH (09:00)
[2019-02-14] MEDS: IBUPROFEN 800 MG TABLET PO PRN ×2 (10:08→22:36)
[2019-02-14] MEDS: SODIUM CHLORIDE FLUSH 0.9% 10 ML SYRINGE IVP SCH ×3 (10:08→17:51)
[2019-02-14] MEDS ORDERED: RHO(D) IMMUNE GLOBULIN 300 MCG SYRINGE IM ONE (13:01)
[2019-02-14] MEDS: MONTELUKAST 10 MG TABLET PO SCH (20:48)
[2019-02-15] MEDS: ACETAMINOPHEN 500 MG TABLET PO SCH ×2 (01:44→10:17)
[2019-02-15] MEDS: IBUPROFEN 800 MG TABLET PO PRN (04:12)
[2019-02-15] MEDS: LEVOTHYROXINE 75 MCG TABLET PO SCH (07:14)
[2019-02-15] MEDS: SIMETHICONE CHEW 80 MG TABLET PO SCH (07:14)
[2019-02-15 08:05] VITALS: BP 126/72
[2019-02-15] MEDS: DOCUSATE SODIUM 100 MG CAPSULE PO SCH (10:17)
--- NOTE | 2019-02-15 11:10 | Discharge Plan ---
Discharge Plan Problem Reviewed?: Yes Disposition: Home, Self Care Condition: Good Diet: Regular Shower Restrictions: No Driving Restrictions: Yes (not while on narcotics) Weight Bearing: Full Weight No Smoking: If you smoke, Please STOP! Call for help.
--- NOTE | 2019-02-15 11:15 | PROVIDER PROGRESS NOTE ---
Subjective - General Admit Date: 02/13/19 Procedure Date: 02/13/19 Post Op Days: 2 Procedure Performed: PLTC/S - Review of Systems Wound/Incisions: positive: Dressing dry and intact (wound Vac working) General: positive: No symptoms (Pain 3/10 with movement. good pain control) HEENT: positive: No symptoms Pulmonary: positive: No symptoms Cardiovascular: positive: No symptoms Gastrointestinal: positive: No symptoms, Flatus Genitourinary: positive: No symptoms (voiding zamudio out) Objective - Patient Data Reviewed Vital Signs: Yes Vital Signs: Vital Signs x48h Temp Pulse Resp BP Pulse Ox 02/15/19 08:04 36.7 C 105 H 16 126/72 97 Weight: Weight 02/13/19 02/14/19 02/15/19 23:59 23:59 23:59 Weight (kg) 92.079 kg Intake & Output: Intake and Output Totals x24h 02/13/19 02/14/19 02/15/19 23:59 23:59 23:59 Intake Total 968.75 2500 Output Total 520 1650 Balance 448.75 850 - Lab Results Lab Results: 02/14/19 06:15 - Current Medications Current Medications: Current Medications Generic Name Dose Route Start Last Admin Trade Name Freq PRN Reason Stop Dose Admin Acetaminophen 1,000 mg 02/13/19 12:00 02/15/19 10:17 Tylenol PO 1,000 mg Q8H BESSY Administration Cetirizine HCl 10 mg 02/14/19 09:00 02/14/19 08:22 Zyrtec PO 10 mg DAILY BESSY Administration Docusate Sodium 100 mg 02/13/19 21:00 02/15/19 10:17 Colace 100mg Capsule PO 100 mg BID BESSY Administration Lactated Ringer's 1,000 mls @ 100 mls/hr 02/13/19 12:00 02/14/19 09:25 Lr IV Not Given .Q10H BESSY OXYTOCIN/DEXTROSE 5 % 30 unit in 500 mls @ 999 mls/hr 02/13/19 11:44 02/14/19 12:49 Pitocin/Dextrose 5% IV Infused PRN PRN Titration POST- HEMORR PREVENTION Protocol 999 MILLIUNIT/MIN Ibuprofen 800 mg 02/14/19 08:17 02/15/19 04:12 Motrin PO 800 mg BID PRN Administration PAIN Levothyroxine Sodium 75 mcg 02/14/19 07:00 02/15/19 07:14 Synthroid PO 75 mcg QDAC BESSY Administration Montelukast Sodium 10 mg 02/13/19 21:00 02/14/19 20:48 Singulair PO 10 mg QPM BESSY Administration Simethicone 80 mg 02/13/19 14:00 02/15/19 07:14 Mylicon PO 80 mg TID BESSY Administration Sodium Chloride 10 ml 02/13/19 17:00 02/14/19 17:51 Normal Saline Flush 0.9% IVP Not Given 0100,0900,1700 BESSY - Physical Exam Wound/Incisions: positive: Dressing dry and intact General Appearance: positive: No acute distress (Discussed breast feeding), Alert Respiratory: positive: Chest non-tender, No respiratory distress, Breath sounds nml Cardiovascular: positive: Regular rate & rhythm, No murmur, No gallop Abdomen: positive: Non-tender, No organomegaly, Nml bowel sounds, No distention Extremities: positive: Calf tenderness, Yoli's sign/cords Neurologic/Psychiatric: positive: Oriented x3 Impression/Plan - Problem List Problem List: POD #2 progressing well Discussed breast feeding and contraception Discharge meds Oxycodone 5 Mg #15 Motrin 800 mg Colace 100 Mg RTC 1 week for wound Vac removal
--- NOTE | 2019-02-15 12:11 | DISCHARGE SUMMARY ---
Physician: Carmine Gracia MD DATE OF ADMISSION: 02/13/2019 DATE OF DISCHARGE: 02/15/2019 ADMITTING DIAGNOSES 1. A 28-year-old G1, P0 female, who is 41 weeks EGA. 2. Suspected macrosomia. DISCHARGE DIAGNOSES 1. A 28-year-old G1, P0 female, who is 41 weeks EGA. 2. macrosomia. PROCEDURE: Primary low transverse section. PRESENTING HISTORY: The patient is a 28-year-old G2, P0, AB1 female who conceived with IVF. She is 41 weeks EGA. She had normal visits. She was noted to be Rh negative. She had an ultrasound done 2 weeks prior to delivery, which showed evidence of a 9-pound infant. She gives a history of mother while delivering her, requiring a fourth-degree episiotomy as well as shoulder dystocia. Because of concerns about suspected macrosomia, it was decided to proceed on with section. Her OB care was positive for being O negative, and she received RhoGAM antenatally. LABORATORIES: her hemoglobin fell to 12.2, hematocrit was 38.2, white count was 9.4, platelets were 148. HOSPITAL COURSE: The patient was taken to the operating room, at which time a primary low transverse section was performed without difficulty. weight 9 lb 10.5 oz. At time of delivery, she had an estimated blood loss of roughly 400 mL Her course has been unremarkable. Her diet was advanced. Her bowel function has returned. Her pain has been well controlled with oral pain medications. She is being discharged to home today with instruction to follow up in 1 week. We discussed as well as contraception. DISCHARGE MEDICATIONS 1. Oxycodone 5 mg #15. 2. Motrin 800 mg #30. 3. Colace 100 mg. TD: 02/15/2019 11:31 MTDD
== END 2019-02-15 11:45 | disposition home or self-care (01) | DRG 788 ==
LOC: FBP 07:15
PROVIDERS: ADMIT Obstetrics & Gynecology; ATTEND Obstetrics & Gynecology
PROC: 10D00Z1 Extraction of Products of Conception, Low, Open Approach (ICD-10-PCS; principal; 2019-02-13 09:00)
DX: O48.0 Post-term pregnancy (principal); Z3A.41 41 weeks gestation of pregnancy; Z37.0 Single live birth; O36.63X0 Maternal care for excessive fetal growth, third trimester, not applicable or unspecified; O26.893 Other specified pregnancy related conditions, third trimester; O99.52 Diseases of the respiratory system complicating childbirth; J45.909 Unspecified asthma, uncomplicated; Z79.899 Other long term (current) drug therapy; Z67.41 Type O blood, Rh negative; Z84.89 Family history of other specified conditions
CPT/HCPCS: 36415; 83033; 85025; 86850; 86900; 86901; A9270; J7120

== ENCOUNTER 2019-04-19 07:00 | Outpatient (CLI) | payer OTHER ==
[2019-04-19 20:38] LABS: CANDIDA GROUP DNA NEGATIVE (NEGATIVE); CANDIDA KRUSEI DNA NEGATIVE (NEGATIVE); TRICHOMONAS VAGINALIS DNA NEGATIVE (NEGATIVE)
== END 2019-04-19 23:59 | disposition home or self-care (01) ==
LOC: LAB.R 07:00
PROVIDERS: ATTEND Obstetrics & Gynecology
DX: N89.8 Other specified noninflammatory disorders of vagina (principal)
CPT/HCPCS: 87661; 87801

== ENCOUNTER 2019-05-02 17:19 | Emergency (ER) | payer OTHER ==
[2019-05-02 17:51] LABS: BASOPHILS % (AUTO) 0.6 %; EOSINOPHILS # (AUTO) 0.6 10^3/uL (0.0-0.7); EOSINOPHILS % (AUTO) 8.9 %; HGB - HEMOGLOBIN 13.4 g/dL (12.0-16.0); LYMPHOCYTES # (AUTO) 2.4 10^3/uL (1.5-3.5); LYMPHOCYTES % (AUTO) 36.9 %; MEAN CORPUSCULAR HEMOGLOBIN 30.3 pg (27.0-31.0); MEAN CORPUSCULAR HGB CONC 33.4 g/dL (32.0-36.0); MEAN CORPUSCULAR VOLUME 90.7 fL (81.0-99.0); MEAN PLATELET VOLUME 9.5 fL (7.9-10.8); MONOCYTES # (AUTO) 0.5 10^3/uL (0.0-1.0); MONOCYTES % (AUTO) 6.9 %; NEUTROPHILS # (AUTO) 3.1 10^3/uL (1.5-6.6); NEUTROPHILS % (AUTO) 46.1 %; PLT - PLATELET COUNT 253 10^3/uL (130-450); RED BLOOD COUNT 4.42 10^6/uL (4.20-5.40); RED CELL DISTRIBUTION WIDTH 12.9 % (12.0-15.0); WHITE BLOOD COUNT 6.6 x10^3/uL (4.8-10.8)
[2019-05-02 18:05] LABS: ALBUMIN 4.2 g/dL (3.2-5.5); ALBUMIN/GLOBULIN RATIO 1.2 (1.0-2.2); BILIRUBIN,TOTAL 0.3 mg/dL (0.2-1.0); CREATININE 0.5 mg/dL (0.4-1.0); TOTAL PROTEIN 7.6 g/dL (6.7-8.2)
[2019-05-02 18:59] LABS: BILIRUBIN,URINE NEGATIVE (NEGATIVE); GLUCOSE, URINE (UA) NEGATIVE (NEGATIVE); KETONES,URINE (UA) NEGATIVE (NEGATIVE); LEUKOCYTE ESTERASE, URINE NEGATIVE (NEGATIVE); NITRITE,URINE NEGATIVE (NEGATIVE); OCCULT BLOOD,URINE LARGE (NEGATIVE); PROTEIN,URINE NEGATIVE (NEGATIVE); UROBILINOGEN,URINE 0.2 (NORMAL) E.U./dL (NORMAL)
[2019-05-02 19:03] LABS: CLARITY,URINE CLOUDY (CLEAR)
[2019-05-02 19:04] LABS: HCG UR QUAL NEGATIVE
[2019-05-02 19:10] LABS: BACTERIA,URINE None Seen /HPF (None Seen); RBC,URINE TNTC /HPF (0-5); SQUAMOUS EPITHELIAL CELL,UR MOD Squamous (<= Few)
--- NOTE | 2019-05-02 19:46 | ED Physician Documentation ---
History of Present Illness - Stated complaint Stated Complaint: FEM /BLEEDING - Chief complaint Chief Complaint: Abd Pain - History obtained from History obtained from: Patient - History of Present Illness Timing: Other (She is 3 months out from a for size. Has not had a period yet. Starting 2 days ago she had heavy bleeding with clots. No pain or cramping. No foul discharge. No fevers. No weakness or dizziness.) Review of Systems Constitutional: reports: Reviewed and negative Cardiac: reports: Reviewed and negative Respiratory: reports: Reviewed and negative PD PAST MEDICAL HISTORY - Past Medical History Cardiovascular: None Respiratory: Asthma Endocrine/Autoimmune: None GI: None Musculoskeletal: Other (some right carpal tunnel syndrome) - Present Medications Home Medications: Ambulatory Orders Medication Instructions Recorded Confirmed Medroxyprogesterone Acetate 10 mg PO DAILY #10 tablet 05/02/19 [Provera] - Allergies Allergies/Adverse Reactions: Allergies Allergy/AdvReac Type Severity Reaction Status Date / Time grass pollen Allergy Respiratory Verified 05/02/19 17:33 - Social History Smoking Status: Former smoker PD ED PE NORMAL - Vitals Vital signs reviewed: Yes - General General: Alert and oriented X 3, No acute distress - Abdomen Abdomen: Soft, Non tender - Back Back: No CVA TTP - Neuro Neuro: Alert and oriented X 3, Normal speech Results - Vitals Vitals: Vital Signs - 24 hr 05/02/19 05/02/19 17:29 19:55 Temperature 36.6 C 36.9 C Heart Rate 92 92 Respiratory 16 16 Rate Blood Pressure 124/75 136/90 H O2 Saturation 99 97 Oxygen O2 Source Room air - Labs Labs: Laboratory Tests 05/02/19 05/02/19 05/02/19 17:40 17:40 17:45 WBC 6.6 RBC 4.42 Hgb 13.4 Hct 40.1 MCV 90.7 MCH 30.3 MCHC 33.4 RDW 12.9 Plt Count 253 MPV 9.5 Neut # (Auto) 3.1 Lymph # (Auto) 2.4 Moffat # (Auto) 0.5 Eos # (Auto) 0.6 Baso # (Auto) 0.0 Absolute Nucleated RBC 0.00 Nucleated RBC % 0.0 Sodium Potassium Chloride Carbon Dioxide Anion Gap BUN Creatinine Estimated GFR (MDRD) Glucose Calcium Total Bilirubin AST ALT Alkaline Phosphatase Total Protein Albumin Globulin Albumin/Globulin Ratio Lipase Urine Color YELLOW Urine Clarity CLOUDY Urine pH 7.0 Ur Specific Hope 1.015 1.015 Urine Protein NEGATIVE Urine Glucose (UA) NEGATIVE Urine Ketones NEGATIVE Urine Occult Blood LARGE H Urine Nitrite NEGATIVE Urine Bilirubin NEGATIVE Urine Urobilinogen 0.2 (NORMAL) Ur Leukocyte Esterase NEGATIVE Urine RBC TNTC H Urine WBC 0-3 Ur Squamous Epith Cells MOD Squamous H Urine Bacteria None Seen Ur Microscopic Review INDICATED Urine Culture Comments NOT INDICATED Urine HCG, Qual NEGATIVE 05/02/19 17:45 WBC RBC Hgb Hct MCV MCH MCHC RDW Plt Count MPV Neut # (Auto) Lymph # (Auto) Moffat # (Auto) Eos # (Auto) Baso # (Auto) Absolute Nucleated RBC Nucleated RBC % Sodium 141 Potassium 3.6 Chloride 106 Carbon Dioxide 28 Anion Gap 7.0 BUN 12 Creatinine 0.5 Estimated GFR (MDRD) 145 Glucose 96 Calcium 9.0 Total Bilirubin 0.3 AST 32 ALT 61 H Alkaline Phosphatase 83 Total Protein 7.6 Albumin 4.2 Globulin 3.4 Albumin/Globulin Ratio 1.2 Lipase 55 H Urine Color Urine Clarity Urine pH Ur Specific Hope Urine Protein Urine Glucose (UA) Urine Ketones Urine Occult Blood Urine Nitrite Urine Bilirubin Urine Urobilinogen Ur Leukocyte Esterase Urine RBC Urine WBC Ur Squamous Epith Cells Urine Bacteria Ur Microscopic Review Urine Culture Comments Urine HCG, Qual PD MEDICAL DECISION MAKING - ED course ED course: This is a 28-year-old woman who is having her first menses a few months after having a , it is quite heavy and is probably just her hormones coming back on line. Her H&H is normal and she is not . We discussed control and she did not want to take control because of the side effects but does well on Provera in the past so we will do that. Departure - Departure Disposition: 01 Home, Self Care Clinical Impression: DUB (dysfunctional uterine bleeding) Condition: Good Record reviewed to determine appropriate education?: Yes Instructions: ED Bleed Irregular Vaginal Prescriptions: Medroxyprogesterone Acetate [Provera] 10 mg PO DAILY #10 tablet Comments: Take the Provera every day until you stop bleeding and then take it for a couple of more days. Return for new or worsening symptoms. Follow-up with your special delivery clerk, next available appointment. Return if worse. Discharge Date/Time: 05/02/19 19:57
[2019-05-02 19:55] VITALS: BP 136/90
== END 2019-05-02 19:57 | disposition home or self-care (01) ==
LOC: ED 17:19
DX: N93.8 Other specified abnormal uterine and vaginal bleeding (principal); Z87.891 Personal history of nicotine dependence
CPT/HCPCS: 36415; 80053; 81001; 81003; 81025; 83690; 85025; 85027; 87086; 99283

== ENCOUNTER 2019-06-18 14:39 | Outpatient (CLI) | payer OTHER ==
[2019-06-18 14:51] LABS: HGB - HEMOGLOBIN 14.2 g/dL (12.0-16.0); MEAN CORPUSCULAR HEMOGLOBIN 30.1 pg (27.0-31.0); MEAN CORPUSCULAR HGB CONC 32.9 g/dL (32.0-36.0); MEAN CORPUSCULAR VOLUME 91.5 fL (81.0-99.0); MEAN PLATELET VOLUME 10.5 fL (7.9-10.8); RED BLOOD COUNT 4.72 10^6/uL (4.20-5.40)
[2019-06-18 15:21] LABS: THYROID STIMULATING HORMONE 0.08 uIU/mL (0.34-5.60)
== END 2019-06-18 14:40 | disposition home or self-care (01) ==
LOC: LAB 14:39
PROVIDERS: ATTEND Obstetrics & Gynecology
DX: N93.9 Abnormal uterine and vaginal bleeding, unspecified (principal); R53.83 Other fatigue; R94.6 Abnormal results of thyroid function studies
CPT/HCPCS: 36415; 82306; 84439; 84443; 84481; 85027; 86376; 86800

== ENCOUNTER 2019-06-28 19:41 | Outpatient (CLI) | payer OTHER ==
--- NOTE | 2019-06-30 03:22 | Ultrasound Report ---
Reason: ABNORMAL UTERINE BLEEDING Procedure Date: 06/28/2019 Accession Number: [id number] / [id number] Procedure: US - Pelvic w/Transvaginal CPT Code: Final Report FULL RESULT: EXAM: PELVIC ULTRASOUND EXAM DATE: 06/28/2019 08:20 PM. CLINICAL HISTORY: ABNORMAL UTERINE BLEEDING. COMPARISON: OB F/U OR REPEAT 01/29/2019 4:12 PM. TECHNIQUE: Realtime transabdominal pelvic scan performed to identify the uterus and adnexa and as an overview of other pelvic structures, followed by transvaginal scan to provide greater detail of the uterus and adnexa, with static image documentation. FINDINGS: Uterus: 8.8 x 4.1 x 5.2 cm, volume 96.5 cc. Anteverted position. Normal overall size and echotexture. Masses: None. Endometrium: 12 mm. An area of focal thickening in the endometrium measuring up to 12 mm with increased vascularity in this region. Cervix: Within normal limits. Right Ovary: 4.3 x 5.0 x 2.8 cm, volume 30.1 cc. Normal echotexture and blood flow. Left Ovary: 5.0 x 1.5 x 4.2 cm, volume 15.8 cc. Normal echotexture and blood flow. Free Fluid: None. Other: None. IMPRESSION: Focal thickening in the mid endometrium with increased vascularity may represent an underlying lesion versus focal hyperplasia. RADIA
== END 2019-06-28 19:42 | disposition home or self-care (01) ==
LOC: DI 19:41
PROVIDERS: ATTEND Obstetrics & Gynecology
DX: R93.89 Abnormal findings on diagnostic imaging of other specified body structures (principal)
CPT/HCPCS: 76830; 76856

== ENCOUNTER 2019-07-24 08:00 | Outpatient (CLI) | payer OTHER ==
[2019-07-24 10:50] LABS: GLUCOSE, URINE (UA) NEGATIVE (NEGATIVE); KETONES,URINE (UA) 15 mg/dL (NEGATIVE); LEUKOCYTE ESTERASE, URINE SMALL (NEGATIVE); NITRITE,URINE NEGATIVE (NEGATIVE); OCCULT BLOOD,URINE LARGE (NEGATIVE); PROTEIN,URINE NEGATIVE (NEGATIVE); UROBILINOGEN,URINE 0.2 (NORMAL) E.U./dL (NORMAL)
[2019-07-24 10:51] LABS: CLARITY,URINE CLEAR (CLEAR)
[2019-07-24 10:54] LABS: BILIRUBIN,URINE NEGATIVE (NEGATIVE); ICTOTEST,URINE NEGATIVE
== END 2019-07-24 23:59 | disposition home or self-care (01) ==
LOC: LAB.R 08:00 → EDSTATUS 14:45 → LAB.R 23:59
PROVIDERS: ATTEND Obstetrics & Gynecology
DX: N93.9 Abnormal uterine and vaginal bleeding, unspecified (principal)
CPT/HCPCS: 81003

== ENCOUNTER 2019-10-25 15:26 | Outpatient (CLI) | payer OTHER ==
[2019-10-25 16:06] LABS: BASOPHILS # (AUTO) 0.1 10^3/uL (0.0-0.1); BASOPHILS % (AUTO) 0.8 %; EOSINOPHILS # (AUTO) 0.5 10^3/uL (0.0-0.7); EOSINOPHILS % (AUTO) 6.9 %; HGB - HEMOGLOBIN 13.6 g/dL (12.0-16.0); LYMPHOCYTES # (AUTO) 2.4 10^3/uL (1.5-3.5); LYMPHOCYTES % (AUTO) 35.9 %; MEAN CORPUSCULAR VOLUME 90.7 fL (81.0-99.0); MEAN PLATELET VOLUME 10.2 fL (7.9-10.8); MONOCYTES # (AUTO) 0.5 10^3/uL (0.0-1.0); NEUTROPHILS # (AUTO) 3.2 10^3/uL (1.5-6.6); NEUTROPHILS % (AUTO) 48.1 %; PLT - PLATELET COUNT 259 10^3/uL (130-450); RED BLOOD COUNT 4.54 10^6/uL (4.20-5.40); RED CELL DISTRIBUTION WIDTH 12.7 % (12.0-15.0); WHITE BLOOD COUNT 6.5 x10^3/uL (4.8-10.8)
== END 2019-10-25 15:27 | disposition home or self-care (01) ==
LOC: LAB 15:26
PROVIDERS: ATTEND Obstetrics & Gynecology
DX: Z01.812 Encounter for preprocedural laboratory examination (principal); Z20.828 Contact with and (suspected) exposure to other viral communicable diseases; N93.9 Abnormal uterine and vaginal bleeding, unspecified; N85.00 Endometrial hyperplasia, unspecified
CPT/HCPCS: 81599; 85025

== ENCOUNTER 2019-10-30 12:00 | Day surgery (SDC) | payer OTHER ==
[~2019-10-30 12:00] MED LIST changes: +ACETAMINOPHEN 1,000 MG/100 ML 100 ML IV ONE; +CELECOXIB 100 MG CAPSULE PO ONE; +GABAPENTIN 400 MG CAPSULE ONE; -ceFAZolin 2 GM in SODIUM CHLORIDE 0.9% 100ML 100 ML IV ONE
[2019-10-30] MEDS ORDERED: PROPOFOL 200 MG/20 ML VIAL IVP ONE (12:01)
[2019-10-30] MEDS ORDERED: KETOROLAC 30 MG/ML VIAL IVP ONE (12:01)
[2019-10-30] MEDS ORDERED: ONDANSETRON 4 MG/2 ML VIAL IVP ONE (12:01)
[2019-10-30] MEDS ORDERED: MIDAZOLAM 2 MG/2 ML VIAL IVP ONE (12:01)
[2019-10-30] MEDS ORDERED: fentaNYL 100 MCG/2 ML VIAL IVP ONE (12:01)
[2019-10-30] MEDS ORDERED: DEXAMETHASONE 4 MG/ML VIAL IVP ONE (12:01)
[2019-10-30 12:18] LABS: HCG UR QUAL NEGATIVE
[2019-10-30] MEDS ORDERED: LACTATED RINGERS 1,000 ML IV ONE (12:21)
--- NOTE | 2019-10-30 12:59 | ANESTHESIA ---
Pre-Anesthesia VS, & Labs - Diagnosis abnormal uterine bleeding, thickened endometrium - Procedure hysteroscopy d and c Vital Signs: Temp Pulse Resp BP Pulse Ox 37.3 C 92 20 120/74 98 10/30/19 12:08 10/30/19 12:08 10/30/19 12:08 10/30/19 12:08 10/30/19 12:08 Height 5 ft 4 in Weight (kg) 75 kg Body Mass Index 28.8 - NPO >8 hours - Is Patient ?: No Home Medications and Allergies Albuterol Sulfate [Proair Hfa Inhaler] 1 - 2 puffs INH Q4H PRN 07/22/19 Beclomethasone Dipropionate [Qvar Redihaler (40 mcg)] 1 inh IH BID 07/22/19 Cetirizine [ZyrTEC] 10 mg PO DAILY PRN 07/22/19 Montelukast [Singulair] 10 mg PO QPM PRN 07/22/19 PARoxetine HCl [Paxil] 20 mg PO DAILY 07/22/19 Pnv No.95/Ferrous Fum/Folic AC [ Caplet] 1 each PO DAILY 07/22/19 Allergies/Adverse Reactions: Allergies Allergy/AdvReac Type Severity Reaction Status Date / Time grass pollen Allergy Respiratory Verified 05/02/19 17:33 Anes History & Medical History - Anesthetic History Anesthesia Complications: reports: No previous complications Family history of Anesthesia Complications: Denies Family history of Malignant Hyperthermia: Denies - Medical History Cardiovascular: reports: None Pulmonary: reports: Asthma (everyday) Gastrointestinal: reports: None Urinary: reports: Chronic bladder infection Neuro: reports: None Musculoskeletal: reports: None Endocrine/Autoimmune: reports: Other (hashimotos thyroiditis) Blood Disorders: reports: None Skin: reports: Eczema Smoking Status: Former smoker (quit 16 years ago) Psychosocial: reports: Anxiety - Surgical History Gynecologic: section, Other Exam General: Alert, Oriented x3, Cooperative, No acute distress Dental: WNL Mouth Openin Fingerbreadth Neck Mobility: Normal Mallampati classification: II Respiratory: Lungs clear, Normal breath sounds, No respiratory distress, No accessory muscle use Cardiovascular: Regular rate, Normal S1, Normal S2, No murmurs Abdomen: Normal bowel sounds, Soft, No tenderness, No hepatospenomegaly, No masses Extremities: No clubbing, No cyanosis, No edema, Normal pulses, No tenderness/swelling Neurological: Normal gait, Normal speech, Strength at 5/5 X4 ext, Normal tone, Sensation intact, Cranial nerves 3-12 NL, Reflexes 2+ Mental/Cognitive Status: Alert/Oriented X3, Normal for patient Cognitive Status: Within normal limits Plan Anesthesia Type: General, MAC Consent for Procedure(s) Verified and Reviewed: Yes Code Status: Attempt Resuscitation ASA classification: 2-Mild systemic disease Is this case an emergency?: No
[2019-10-30] MEDS ORDERED: LIDOCAINE 1%-EPI 1:100000 20 ML MDV ONE (13:34)
[2019-10-30] MEDS ORDERED: LIDOCAINE 1%-EPI 1:100000 20 ML MDV SUBQ ONE ×2 (14:08)
[2019-10-30] MEDS ORDERED: SILVER NITRATE APPLICATOR TOP ONE ×2 (14:30→14:36)
--- NOTE | 2019-10-30 14:58 | OPERATIVE REPORT ---
Operative Report - General Procedure Date: 10/30/19 Planned Procedure: Hysteroscopy D&C with polypectomy Pre-Op Diagnosis: Dysfunctional uterine bleeding, thickened endometrium Procedure Performed: Hysteroscopy D&C and polypectomy Post Op Diagnosis: same - Procedure Note Primary Surgeon: Vero Johnson MD Anesthesia Provider: Monika Acevedo CRNA and Sandra De La Garza CRNA Anesthesia Technique: MAC, Other (paracervical block) Pathology: uterine contents IV Fluids (mL): 700 Estimated Blood Loss (mL): 10 Urine Output (mL): 50 Indications: The patient is a 28-year-old about nine months with dysfunctional uterine bleeding. She underwent a pelvic ultrasound that showed a 12 mm intrauterine mass consistent with likely polyp. She would like to undergo hysteroscopy and D&C with possible polypectomy Findings: Diffuse polypoid tissue in the endometrial cavity with several smaller, discrete polyps and an intracervical polyp. After completion of polypectomy, uterine cavity was of normal structure. Tubal ostia noted. Texture of uterus was boggy with baseline dilation of cervical os. Complications: None - Other Other Information/Narrative: Risks benefits and alternatives to the procedure were reviewed. Consent was again confirmed. Patient was taken to the operating room where she underwent general anesthesia. She was positioned in dorsolithotomy position with legs resting in yellowfin stirrups. She was prepped and draped in the usual sterile fashion. Preoperative antibiotics were not indicated. Preoperative checklist was performed. Exam under anesthesia was performed. Speculum was placed in the vagina and the cervix was visualized. Single-tooth tenaculum was placed at the anterior cervical lip. Paracervical block was administered using a total of 20 cc of 1% lidocaine with epinephrine was injected at the 4:00 and 8:00 positions lateral to the portio of the cervix. The cervical os was serially dilated with Hegar dilators to accommodate the caliber of the diagnostic hysteroscope. Uterus sounded to 7.5 cm. The hysteroscope was inserted and findings were noted as above. The hysteroscopic morcellator was inserted through the operative port. The intrauterine polyps were morcellated under direct visualization. Uterine cavity was smooth at close of the procedure. Hysteroscope was removed. Sharp curettage D&C was performed with sharp curettage. All instruments were removed from the uterus. Tenaculum was removed. Tenaculum sites were noted to be hemostatic. All instruments were removed from the vagina. Procedure was well-tolerated without complication. Fluid deficit: 300 cc NS
[2019-10-30] MEDS ORDERED: oxyCODONE 5 MG TABLET PO PRN (15:13)
[2019-10-30 15:27] VITALS: BP 109/75
== END 2019-10-30 12:01 | disposition home or self-care (01) ==
LOC: SDS 12:00
PROVIDERS: ATTEND Obstetrics & Gynecology
PROC: 0UDB7ZX Extraction of Endometrium, Via Natural or Artificial Opening, Diagnostic (ICD-10-PCS; 2019-10-30)
PROC: 0UB98ZZ Excision of Uterus, Via Natural or Artificial Opening Endoscopic (ICD-10-PCS; principal; 2019-10-30 13:15)
DX: N93.9 Abnormal uterine and vaginal bleeding, unspecified (principal); J45.909 Unspecified asthma, uncomplicated; E06.3 Autoimmune thyroiditis; F41.9 Anxiety disorder, unspecified; N84.0 Polyp of corpus uteri; Z87.891 Personal history of nicotine dependence
CPT/HCPCS: 58558; 81025; A9270; J0131; J7120

== ENCOUNTER 2020-04-27 09:12 | Outpatient (CLI) | payer OTHER ==
[2020-04-27 12:37] LABS: HCG,QUALITATIVE BLOOD POSITIVE
== END 2020-04-27 23:59 | disposition home or self-care (01) ==
LOC: LAB.WCP 09:12
PROVIDERS: ATTEND Nurse Practitioner Family
DX: Z33.1 Pregnant state, incidental (principal)
CPT/HCPCS: 36415; 84144; 84443; 84703

== ENCOUNTER 2020-05-03 12:14 | Outpatient (CLI) | payer OTHER ==
[2020-05-03 12:47] LABS: MUDS CUTOFF CONCENTRATIONS CUTOFF CONC BELOW:
[2020-05-03 13:07] LABS: BILIRUBIN,URINE NEGATIVE (NEGATIVE); GLUCOSE, URINE (UA) NEGATIVE (NEGATIVE); KETONES,URINE (UA) NEGATIVE (NEGATIVE); LEUKOCYTE ESTERASE, URINE NEGATIVE (NEGATIVE); NITRITE,URINE NEGATIVE (NEGATIVE); OCCULT BLOOD,URINE NEGATIVE (NEGATIVE); PROTEIN,URINE NEGATIVE (NEGATIVE); UROBILINOGEN,URINE 0.2 (NORMAL) E.U./dL (NORMAL)
[2020-05-03 13:08] LABS: CLARITY,URINE CLEAR (CLEAR)
[2020-05-03 13:21] LABS: AMPHETAMINE SCREEN,URINE NEGATIVE (NEGATIVE); BENZODIAZEPINES SCREEN, URINE NEGATIVE (NEGATIVE); COCAINE SCREEN URINE NEGATIVE (NEGATIVE); METHADONE SCREEN, URINE NEGATIVE (NEGATIVE); METHAMPHETAMINES SCREEN, URINE NEGATIVE (NEGATIVE); OPIATE SCREEN, URINE NEGATIVE (NEGATIVE); OXYCODONE SCREEN, URINE NEGATIVE (NEGATIVE); PROPOXYPHENE SCREEN, URINE NEGATIVE (NEGATIVE); TRICYCLIC ANTIDEPRESSANT,URINE NEGATIVE (NEGATIVE)
[2020-05-03 13:25] LABS: BACTERIA,URINE Rare /HPF (None Seen); RBC,URINE 0-5 /HPF (0-5); SQUAMOUS EPITHELIAL CELL,UR RARE Squamous (<= Few)
== END 2020-05-03 12:15 | disposition home or self-care (01) ==
LOC: LAB 12:14
PROVIDERS: ATTEND Obstetrics & Gynecology
DX: O09.90 Supervision of high risk pregnancy, unspecified, unspecified trimester (principal); Z13.21 Encounter for screening for nutritional disorder
CPT/HCPCS: 36415; 80306; 81001; 82306; 82670; 84702; 86900; 86901; 87086

== ENCOUNTER 2020-05-06 09:54 | Outpatient (CLI) | payer OTHER | END 2020-05-06 09:55 | disposition home or self-care (01) | LOC: LAB 09:54 | PROVIDERS: ATTEND Obstetrics & Gynecology | DX: O09.90 Supervision of high risk pregnancy, unspecified, unspecified trimester (principal) | CPT/HCPCS: 36415; 84702 ==

== ENCOUNTER 2020-05-09 06:55 | Outpatient (CLI) | payer OTHER | END 2020-05-09 06:56 | disposition home or self-care (01) | LOC: LAB 06:55 | PROVIDERS: ATTEND Obstetrics & Gynecology | DX: O09.90 Supervision of high risk pregnancy, unspecified, unspecified trimester (principal) | CPT/HCPCS: 36415; 84702 ==

== ENCOUNTER 2020-05-15 18:00 | Outpatient (CLI) | payer OTHER ==
--- NOTE | 2020-05-16 11:28 | Ultrasound Report ---
PROCEDURE: OB First Trimester w/TV INDICATIONS: SUPERVISION OF HIGH RISK OUTSIDE/PRIOR DATING DATA: Last menstrual period (LMP): 03/26/2020. LMP-based estimated date of delivery (BERYL): 12/31/2020. First dating scan (date and location): Not applicable. Estimated date of delivery (BERYL) from first dating scan: Not applicable. TECHNIQUE: Real-time scanning was performed of the fetus and maternal pelvic organs, with image documentation. Endovaginal scanning was also performed to better visualize the fetus and maternal ovaries. COMPARISON: None FINDINGS: A presumed intrauterine gestational sac is seen although technically nonspecific. Mean ges tational sac diameter measures 5 weeks 1 day (0.42 cm) Embryo: No pole identified Measurement variability in dating: +/- 4 weeks by LMP, +/- 7 days by mean sac diameter (use before 6 weeks gestation if crown-rump length not able to be measured), +/- 5 days by crown-rump length (6-12 weeks gestation). Maternal organs: Ovaries unremarkable. Limited images through the kidneys demonstrate no hydronephr osis. IMPRESSION: Small fluid collection seen in the uterus, presumed gestational sac although technically nonspecific. No pole identified. Findings could reflect spontaneous , although recommend correlatio n with serial beta hCG values to exclude early intrauterine or ectopic . If there is clinical suspicion for retained products of conception, ectopic or early intrauterine pr egnancy, recommend follow-up ultrasound in one week. Reviewed by: Henok Montoya MD on 05/16/2020 11:26 AM PST Approved by: Henok Montoya MD on 05/16/2020 11:26 AM PST Station ID: [id number]
== END 2020-05-15 18:01 | disposition home or self-care (01) ==
LOC: DI 18:00
PROVIDERS: ATTEND Obstetrics & Gynecology
DX: O09.91 Supervision of high risk pregnancy, unspecified, first trimester (principal)

== ENCOUNTER 2020-05-25 11:30 | Outpatient (CLI) | payer OTHER ==
[2020-05-25 12:48] LABS: BASOPHILS # (AUTO) 0.1 10^3/uL (0.0-0.1); BASOPHILS % (AUTO) 0.8 %; EOSINOPHILS # (AUTO) 0.6 10^3/uL (0.0-0.7); EOSINOPHILS % (AUTO) 9.7 %; HGB - HEMOGLOBIN 14.6 g/dL (12.0-16.0); LYMPHOCYTES # (AUTO) 2.4 10^3/uL (1.5-3.5); LYMPHOCYTES % (AUTO) 36.4 %; MEAN CORPUSCULAR HEMOGLOBIN 30.6 pg (27.0-31.0); MEAN CORPUSCULAR HGB CONC 33.3 g/dL (32.0-36.0); MEAN PLATELET VOLUME 9.6 fL (7.9-10.8); MONOCYTES # (AUTO) 0.5 10^3/uL (0.0-1.0); MONOCYTES % (AUTO) 7.1 %; NEUTROPHILS % (AUTO) 45.8 %; PLT - PLATELET COUNT 273 10^3/uL (130-450); RED BLOOD COUNT 4.77 10^6/uL (4.20-5.40); WHITE BLOOD COUNT 6.6 x10^3/uL (4.8-10.8)
== END 2020-05-25 11:31 | disposition home or self-care (01) ==
LOC: LAB 11:30
PROVIDERS: ATTEND Obstetrics & Gynecology
DX: Z01.812 Encounter for preprocedural laboratory examination (principal); O03.9 Complete or unspecified spontaneous abortion without complication; Z20.822 Contact with and (suspected) exposure to COVID-19
CPT/HCPCS: 36415; 84702; 85025

== ENCOUNTER 2020-10-01 08:00 | Outpatient (CLI) | payer OTHER ==
[2020-10-01 12:21] LABS: BASOPHILS # (AUTO) 0.1 10^3/uL (0.0-0.1); BASOPHILS % (AUTO) 0.8 %; EOSINOPHILS # (AUTO) 0.5 10^3/uL (0.0-0.7); HGB - HEMOGLOBIN 14.3 g/dL (12.0-16.0); LYMPHOCYTES # (AUTO) 2.8 10^3/uL (1.5-3.5); LYMPHOCYTES % (AUTO) 36.6 %; MEAN CORPUSCULAR HEMOGLOBIN 29.9 pg (27.0-31.0); MEAN CORPUSCULAR HGB CONC 32.5 g/dL (32.0-36.0); MEAN CORPUSCULAR VOLUME 92.1 fL (81.0-99.0); MEAN PLATELET VOLUME 10.4 fL (7.9-10.8); MONOCYTES # (AUTO) 0.5 10^3/uL (0.0-1.0); MONOCYTES % (AUTO) 6.9 %; NEUTROPHILS # (AUTO) 3.7 10^3/uL (1.5-6.6); NEUTROPHILS % (AUTO) 48.3 %; PLT - PLATELET COUNT 282 10^3/uL (130-450); RED BLOOD COUNT 4.78 10^6/uL (4.20-5.40); RED CELL DISTRIBUTION WIDTH 12.1 % (12.0-15.0); WHITE BLOOD COUNT 7.7 x10^3/uL (4.8-10.8)
[2020-10-01 12:33] LABS: THYROID STIMULATING HORMONE 1.2 uIU/mL (0.34-5.60)
[2020-10-01 12:37] LABS: ALBUMIN 4.6 g/dL (3.2-5.5); ALBUMIN/GLOBULIN RATIO 1.4 (1.0-2.2); ALKALINE PHOSPHATASE 61 IU/L (42-121); ALT ALANINE AMINOTRANSFERASE 19 IU/L (10-60); AST ASPARTATE AMINOTRANSFERASE 16 IU/L (10-42); BILIRUBIN,TOTAL 0.6 mg/dL (0.2-1.0); BUN - BLOOD UREA NITROGEN 7 mg/dL (6-20); CALCIUM 8.7 mg/dL (8.5-10.3); CARBON DIOXIDE - CO2 27 mmol/L (21-32); CHLORIDE 106 mmol/L (101-111); CHOL/HDL RATIO 3.9 (<4.4); CHOLESTEROL 192 mg/dL; CREATININE 0.6 mg/dL (0.4-1.0); GFR - MDRD 117 (>89); GLUCOSE 89 mg/dL (70-100); HDL CHOLESTEROL 49 mg/dL; LDL CHOLESTEROL,CALCULATED 127 mg/dL; LDL/HDL RATIO 2.6 (<4.4); POTASSIUM 3.8 mmol/L (3.5-5.0); SODIUM 138 mmol/L (135-145); TOTAL PROTEIN 7.9 g/dL (6.7-8.2); TRIGLYCERIDES 79 mg/dL; VLDL CHOLESTEROL 16 mg/dL
== END 2020-10-01 08:01 | disposition home or self-care (01) ==
LOC: LAB.WCP 08:00
PROVIDERS: ATTEND Family Medicine
DX: Z00.00 Encounter for general adult medical examination without abnormal findings (principal); R53.83 Other fatigue; E55.9 Vitamin D deficiency, unspecified; E03.8 Other specified hypothyroidism
CPT/HCPCS: 36415; 80050; 80061; 82306; 83721

== ENCOUNTER 2021-01-18 08:00 | Outpatient (CLI) | payer OTHER ==
[2021-01-18 17:47] LABS: BASOPHILS # (AUTO) 0.1 10^3/uL (0.0-0.1); BASOPHILS % (AUTO) 0.6 %; EOSINOPHILS # (AUTO) 0.6 10^3/uL (0.0-0.7); EOSINOPHILS % (AUTO) 7.2 %; HCT - HEMATOCRIT 45.4 % (37.0-47.0); HGB - HEMOGLOBIN 14.6 g/dL (12.0-16.0); LYMPHOCYTES # (AUTO) 2.6 10^3/uL (1.5-3.5); LYMPHOCYTES % (AUTO) 33.4 %; MEAN CORPUSCULAR HGB CONC 32.2 g/dL (32.0-36.0); MEAN CORPUSCULAR VOLUME 93.4 fL (81.0-99.0); MEAN PLATELET VOLUME 10.1 fL (7.9-10.8); MONOCYTES # (AUTO) 0.5 10^3/uL (0.0-1.0); MONOCYTES % (AUTO) 6.1 %; NEUTROPHILS # (AUTO) 4.1 10^3/uL (1.5-6.6); NEUTROPHILS % (AUTO) 52.3 %; PLT - PLATELET COUNT 276 10^3/uL (130-450); RED BLOOD COUNT 4.86 10^6/uL (4.20-5.40); RED CELL DISTRIBUTION WIDTH 12.2 % (12.0-15.0); WHITE BLOOD COUNT 7.8 x10^3/uL (4.8-10.8)
[2021-01-18 18:09] LABS: ALBUMIN 4.7 g/dL (3.2-5.5); ALBUMIN/GLOBULIN RATIO 1.4 (1.0-2.2); BILIRUBIN,TOTAL 0.7 mg/dL (0.2-1.0); CALCIUM 8.8 mg/dL (8.5-10.3); CREATININE 0.5 mg/dL (0.4-1.0); POTASSIUM 4.1 mmol/L (3.5-5.0)
[2021-01-18 18:37] LABS: HCG,QUALITATIVE BLOOD NEGATIVE
== END 2021-01-18 23:59 | disposition home or self-care (01) ==
LOC: LAB.WCP 08:00
PROVIDERS: ATTEND Family Medicine
DX: R14.0 Abdominal distension (gaseous) (principal)
CPT/HCPCS: 36415; 80053; 81599; 83516; 84703; 85025; 86255

== ENCOUNTER 2021-09-06 06:19 | Day surgery (SDC) | payer OTHER ==
[2021-09-06] MEDS ORDERED: LACTATED RINGERS 1,000 ML IV ONE ×2 (06:24→08:33)
[2021-09-06] MEDS ORDERED: MIDAZOLAM 2 MG/2 ML VIAL ONE (07:08)
[2021-09-06] MEDS ORDERED: LIDOCAINE-MPF 2% 5 ML VIAL ONE (07:09)
[2021-09-06] MEDS ORDERED: PROPOFOL 500 MG/50 ML 500 MG/50 ML VIAL ONE (07:09)
--- NOTE | 2021-09-06 07:14 | ANESTHESIA ---
Pre-Anesthesia VS, & Labs - Diagnosis family history of colon CA, rectal bleeding, abdominal pain - Procedure Colonoscopy, EGD Vital Signs: Temp Pulse Resp BP Pulse Ox 36.5 C 87 14 102/85 H 97 09/06/21 06:31 09/06/21 06:31 09/06/21 06:31 09/06/21 06:31 09/06/21 06:31 Height: 5 ft 3 in Weight (kg): 73.8 kg Body Mass Index: 28.8 BMI Classification: Overweight - NPO >8 hours - Is Patient ?: No Home Medications and Allergies Home Medications: Ambulatory Orders Ashwagandha Root Extract [Ashwagandha] 1 cap PO DAILY 09/03/21 Levothyroxine Sodium [Synthroid] 1 tab PO DAILY 09/03/21 Selenium 200 mcg PO DAILY 09/03/21 Sertraline [Zoloft] 1 tab PO DAILY 09/03/21 Ubidecarenone [Co Q-10] 1 cap PO DAILY 09/03/21 Vitamin E 400 unit PO DAILY 09/03/21 Albuterol Sulfate [Proair Hfa Inhaler] 1 - 2 puffs INH Q4H PRN 07/22/19 Cetirizine [ZyrTEC] 10 mg PO DAILY PRN 07/22/19 Montelukast [Singulair] 10 mg PO QPM PRN 07/22/19 Pnv No.95/Ferrous Fum/Folic AC [ Caplet] 1 each PO DAILY 07/22/19 Ashwagandha Root Extract [Ashwagandha] 1 cap PO DAILY 09/03/21 Levothyroxine Sodium [Synthroid] 1 tab PO DAILY 09/03/21 Selenium 200 mcg PO DAILY 09/03/21 Sertraline [Zoloft] 1 tab PO DAILY 09/03/21 Ubidecarenone [Co Q-10] 1 cap PO DAILY 09/03/21 Vitamin E 400 unit PO DAILY 09/03/21 Allergies/Adverse Reactions: Allergies Allergy/AdvReac Type Severity Reaction Status Date / Time grass pollen Allergy Respiratory Verified 09/03/21 13:15 Anes History & Medical History - Anesthetic History Anesthesia Complications: reports: Post-Operative Nausea/Vomiting (with C/S) - Medical History Cardiovascular: reports: None Pulmonary: reports: Asthma Gastrointestinal: reports: None Urinary: reports: Chronic bladder infection Neuro: reports: None Musculoskeletal: reports: None Endocrine/Autoimmune: reports: Other Blood Disorders: reports: None Skin: reports: Eczema Smoking Status: Former smoker (quit 16 years ago) - Surgical History Gynecologic: reports: section, Dilation and currettage, Other Exam General: Alert, Oriented x3 Dental: WNL Mouth Opening: Greater than 4 Fingerbreadths Mallampati classification: I Thyromental Distance: greater than 6 cm Respiratory: Lungs clear Cardiovascular: Regular rate Plan Anesthesia Type: Total IV Consent for Procedure(s) Verified and Reviewed: Yes Code Status: Attempt Resuscitation ASA classification: 2-Mild systemic disease Is this case an emergency?: No
[2021-09-06 07:23] LABS: HCG UR QUAL NEGATIVE
[2021-09-06] MEDS ORDERED: PHENYLEPHRINE 10 MG/ML VIAL ONE (08:17)
[2021-09-06 08:54] VITALS: BP 104/73
--- NOTE | 2021-09-06 10:08 | ANESTHESIA POST OP EVALUATION ---
Anesthesia Post Eval - Post Anesthesia Eval Vitals: Last Vital Signs Temp 36.4 C L 09/06/21 08:53 Pulse 75 09/06/21 08:53 Resp 16 09/06/21 08:53 BP 104/73 09/06/21 08:53 Pulse Ox 100 09/06/21 08:53 CV Function Including HR & BP: Stable Pain Control: Satisfactory Nausea & Vomiting: Negative Mental Status: Baseline Respiratory Status: Airway Patent Hydration Status: Satisfactory Anesthesia Complications: None
== END 2021-09-06 06:20 | disposition home or self-care (01) ==
LOC: SDS 06:19
PROVIDERS: ATTEND Surgery
PROC: 0DB28ZX Excision of Middle Esophagus, Via Natural or Artificial Opening Endoscopic, Diagnostic (ICD-10-PCS; 2021-09-06)
PROC: 0DB48ZX Excision of Esophagogastric Junction, Via Natural or Artificial Opening Endoscopic, Diagnostic (ICD-10-PCS; 2021-09-06)
PROC: 0DBE8ZX Excision of Large Intestine, Via Natural or Artificial Opening Endoscopic, Diagnostic (ICD-10-PCS; 2021-09-06)
PROC: 0DB98ZX Excision of Duodenum, Via Natural or Artificial Opening Endoscopic, Diagnostic (ICD-10-PCS; principal; 2021-09-06 07:30)
PROC: 0DB68ZX Excision of Stomach, Via Natural or Artificial Opening Endoscopic, Diagnostic (ICD-10-PCS; 2021-09-06 07:30)
DX: K57.31 Diverticulosis of large intestine without perforation or abscess with bleeding (principal); K20.90 Esophagitis, unspecified without bleeding; K64.8 Other hemorrhoids; R12 Heartburn; R14.0 Abdominal distension (gaseous); J45.909 Unspecified asthma, uncomplicated; Z83.71 Family history of colonic polyps; Z87.891 Personal history of nicotine dependence
CPT/HCPCS: 43239; 45380; 81025; J7120

== ENCOUNTER 2021-09-21 13:38 | Emergency (ER) | payer OTHER ==
[2021-09-21 13:48] VITALS: BP 134/79
--- NOTE | 2021-09-21 14:04 | ED Physician Documentation ---
History of Present Illness - Stated complaint Stated Complaint: CLOUDY VISION,LIGHTHEADED - Chief complaint Chief Complaint: Neuro - History obtained from History obtained from: Patient - Additonal information Additional information: 30-year-old woman with depression and anxiety presents with recurrent symptoms that have been gone for quite some time but are bothersome to her. In the past she had what was thought to be hormonally related panic attacks. She notes that it usually happened around the time of her menses and she would get symptoms like what happened today. Starting around 1130 today she felt weird and out of body. She felt a sensation that went from the top of her head down to her toes where it would alternate from heat to cold and then back again. She is on her menses and was somewhat late but she is taken a test at home that was negative. She has a history of Edwin's thyroiditis and is currently on low- dose levothyroxine and a history of anxiety and depression on Zoloft. Review of Systems Ten Systems: 10 systems reviewed and negative Constitutional: reports: Chills, Sweats. denies: Fatigue Nose: denies: Rhinorrhea / runny nose Cardiac: denies: Chest pain / pressure, Palpitations Respiratory: denies: Dyspnea, Cough PD PAST MEDICAL HISTORY - Past Medical History Cardiovascular: None Respiratory: Asthma Neuro: None Endocrine/Autoimmune: Other GI: None : Chronic bladder infection HEENT: Other Psych: Anxiety, Panic attacks Musculoskeletal: None Derm: Eczema - Past Surgical History Past Surgical History: No /[employer]PER[employer]: section, Dilation and currettage, Other - Present Medications Home Medications: Ambulatory Orders Medication Instructions Recorded Confirmed Albuterol Sulfate [Proair Hfa 1 - 2 puffs INH Q4H PRN 07/22/19 09/21/21 Inhaler] Cetirizine [ZyrTEC] 10 mg PO DAILY PRN 07/22/19 09/21/21 Montelukast [Singulair] 10 mg PO QPM PRN 07/22/19 09/21/21 Pnv No.95/Ferrous Fum/Folic AC 1 each PO DAILY 07/22/19 09/21/21 [ Caplet] Ashwagandha Root Extract 1 cap PO DAILY 09/03/21 09/21/21 [Ashwagandha] Levothyroxine Sodium [Synthroid] 1 tab PO DAILY 09/03/21 09/21/21 Selenium 200 mcg PO DAILY 09/03/21 09/21/21 Sertraline [Zoloft] 1 tab PO DAILY 09/03/21 09/21/21 Ubidecarenone [Co Q-10] 1 cap PO DAILY 09/03/21 09/21/21 Vitamin E 400 unit PO DAILY 09/03/21 09/21/21 Sertraline [Zoloft] 25 mg PO DAILY #30 tablet 09/21/21 - Allergies Allergies/Adverse Reactions: Allergies Allergy/AdvReac Type Severity Reaction Status Date / Time grass pollen Allergy Respiratory Verified 09/21/21 13:42 - Social History Does the pt smoke?: Yes Smoking Status: Former smoker (quit 16 years ago) Does the pt drink ETOH?: Yes Does the pt have substance abuse?: No - Immunizations Immunizations are current?: Yes - POLST Patient has POLST: No PD ED PE NORMAL - Vitals Vital signs reviewed: Yes - General General: Alert and oriented X 3, No acute distress - HEENT HEENT: PERRL, EOMI - Neck Neck: Supple, no meningeal sign, No bony TTP - Cardiac Cardiac: RRR, No murmur - Respiratory Respiratory: No respiratory distress, Clear bilaterally - Abdomen Abdomen: Non tender - Back Back: No CVA TTP, No spinal TTP - Derm Derm: Normal color, Warm and dry - Extremities Extremities: Other (Normal lower extremity reflexes) - Neuro Neuro: Alert and oriented X 3, Normal speech Results - Vitals Vitals: Vital Signs - 24 hr 09/21/21 09/21/21 13:44 13:46 Temperature 36.7 C 36.7 C Heart Rate 77 77 Respiratory 18 18 Rate Blood Pressure 134/79 H 134/79 H O2 Saturation 100 100 Oxygen O2 Source Room air - Labs Labs: Laboratory Tests 09/21/21 09/21/21 09/21/21 13:59 14:11 14:11 WBC 7.0 RBC 4.73 Hgb 14.2 Hct 42.8 MCV 90.5 MCH 30.0 MCHC 33.2 RDW 12.1 Plt Count 272 MPV 9.5 Neut # (Auto) 4.6 Lymph # (Auto) 1.6 [place] # (Auto) 0.4 Eos # (Auto) 0.3 Baso # (Auto) 0.1 Absolute Nucleated RBC 0.00 Nucleated RBC % 0.0 VBG pH VBG pCO2 VBG pO2 VBG HCO3 VBG Total CO2 VBG O2 Saturation VBG Base Excess Sodium 140 Potassium 3.8 Chloride 104 Carbon Dioxide 25 Anion Gap 11.0 BUN 9 Creatinine 0.5 Estimated GFR (MDRD) 143 Glucose 92 Calcium 8.8 TSH Urine Color YELLOW Urine Clarity CLEAR Urine pH 6.5 Ur Specific [place] <=1.005 Urine Protein NEGATIVE Urine Glucose (UA) NEGATIVE Urine Ketones NEGATIVE Urine Occult Blood MODERATE H Urine Nitrite NEGATIVE Urine Bilirubin NEGATIVE Urine Urobilinogen 0.2 (NORMAL) Ur Leukocyte Esterase NEGATIVE Urine RBC 0-5 Urine WBC 0-3 Ur Squamous Epith Cells RARE Squamous Urine Bacteria None Seen Ur Microscopic Review INDICATED Urine Culture Comments NOT INDICATED Urine HCG, Qual NEGATIVE 09/21/21 09/21/21 14:11 14:11 WBC RBC Hgb Hct MCV MCH MCHC RDW Plt Count MPV Neut # (Auto) Lymph # (Auto) [place] # (Auto) Eos # (Auto) Baso # (Auto) Absolute Nucleated RBC Nucleated RBC % VBG pH 7.379 VBG pCO2 43.2 VBG pO2 24.9 L VBG HCO3 24.9 VBG Total CO2 26.3 VBG O2 Saturation 47.4 L VBG Base Excess -0.4 Sodium Potassium Chloride Carbon Dioxide Anion Gap BUN Creatinine Estimated GFR (MDRD) Glucose Calcium TSH 1.46 Urine Color Urine Clarity Urine pH Ur Specific [place] Urine Protein Urine Glucose (UA) Urine Ketones Urine Occult Blood Urine Nitrite Urine Bilirubin Urine Urobilinogen Ur Leukocyte Esterase Urine RBC Urine WBC Ur Squamous Epith Cells Urine Bacteria Ur Microscopic Review Urine Culture Comments Urine HCG, Qual PD MEDICAL DECISION MAKING - ED course ED course: 30-year-old woman presents with nonspecific symptoms, normal exam and normal work-up here. She feels like this is probably related to anxiety and requested an increase in her Zoloft dosing, she is currently just at the lowest dose. Departure - Departure Disposition: 01 Home, Self Care Clinical Impression: Dizziness Condition: Good Record reviewed to determine appropriate education?: Yes Instructions: ED Dizziness [facility] Follow-Up: [facility] [Provider Group] Prescriptions: Sertraline [Zoloft] 25 mg PO DAILY #30 tablet Comments: As discussed, labs looking good today including blood counts, chemistry panel and thyroid function and negative test. I sent the prescription for the increase in Zoloft to [facility] in [place]. 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 Return for new or worsening symptoms. Discharge Date/Time: 09/21/21 15:14
[2021-09-21 14:14] LABS: BILIRUBIN,URINE NEGATIVE (NEGATIVE); GLUCOSE, URINE (UA) NEGATIVE (NEGATIVE); KETONES,URINE (UA) NEGATIVE (NEGATIVE); LEUKOCYTE ESTERASE, URINE NEGATIVE (NEGATIVE); NITRITE,URINE NEGATIVE (NEGATIVE); OCCULT BLOOD,URINE MODERATE (NEGATIVE); PH,URINE 6.5 PH (5.0-7.5); PROTEIN,URINE NEGATIVE (NEGATIVE); UROBILINOGEN,URINE 0.2 (NORMAL) E.U./dL (NORMAL)
[2021-09-21 14:17] LABS: BASOPHILS # (AUTO) 0.1 10^3/uL (0.0-0.1); BASOPHILS % (AUTO) 0.9 %; EOSINOPHILS # (AUTO) 0.3 10^3/uL (0.0-0.7); EOSINOPHILS % (AUTO) 4.3 %; HCT - HEMATOCRIT 42.8 % (37.0-47.0); HGB - HEMOGLOBIN 14.2 g/dL (12.0-16.0); LYMPHOCYTES # (AUTO) 1.6 10^3/uL (1.5-3.5); LYMPHOCYTES % (AUTO) 22.2 %; MEAN CORPUSCULAR HGB CONC 33.2 g/dL (32.0-36.0); MEAN CORPUSCULAR VOLUME 90.5 fL (81.0-99.0); MEAN PLATELET VOLUME 9.5 fL (7.9-10.8); MONOCYTES # (AUTO) 0.4 10^3/uL (0.0-1.0); MONOCYTES % (AUTO) 6.3 %; NEUTROPHILS # (AUTO) 4.6 10^3/uL (1.5-6.6); PLT - PLATELET COUNT 272 10^3/uL (130-450); RED BLOOD COUNT 4.73 10^6/uL (4.20-5.40); RED CELL DISTRIBUTION WIDTH 12.1 % (12.0-15.0)
[2021-09-21 14:18] LABS: VBG PCO2 43.2 mmHg (41-51); VBG PH 7.379 (7.31-7.41); VBG PO2 24.9 mmHg (25-47)
[2021-09-21 14:18] LABS: CLARITY,URINE CLEAR (CLEAR); HCG UR QUAL NEGATIVE
[2021-09-21 14:19] LABS: VBG BASE EXCESS -0.4 mmol/L (-2 - +2); VBG HCO3 24.9 mmol/L (23-28); VBG OXYGEN SATURATION 47.4 % (60-80); VBG TOTAL CO2 26.3 mmol/L (24-29)
[2021-09-21 14:21] LABS: BACTERIA,URINE None Seen /HPF (None Seen); RBC,URINE 0-5 /HPF (0-5); SQUAMOUS EPITHELIAL CELL,UR RARE Squamous (<= Few); WBC,URINE 0-3 /HPF (0-5)
[2021-09-21 14:37] LABS: CALCIUM 8.8 mg/dL (8.5-10.3); CREATININE 0.5 mg/dL (0.4-1.0); POTASSIUM 3.8 mmol/L (3.5-5.0)
== END 2021-09-21 15:14 | disposition home or self-care (01) ==
LOC: ED 13:38
DX: R42 Dizziness and giddiness (principal); Z87.891 Personal history of nicotine dependence
CPT/HCPCS: 36415; 80048; 81001; 81003; 81025; 82803; 84443; 85025; 87086; 99283